=== PATIENT | male | born 1995 | race Asian ===

== ENCOUNTER 2018-07-24 22:43 | Emergency (ER) | payer OTHER ==
[~2018-07-24] VITALS: Ht 182.9 cm; Wt 77.1 kg
[2018-07-24 23:29] VITALS: BP_SYST 114
--- NOTE | 2018-07-24 23:29 | NUR ---
Patient to ER bed 5 to gown for evaluation. Side rails up.
--- NOTE | 2018-07-24 23:30 | NUR ---
Patient AOx4, ambulatory, presents to ER with complaint of body aches, fever, chills, and sore throat x4 days. Patient states fever of 101.2. Patient medicated with Tylenol 1 hour prior to arrival to ED. No other symptoms or complaints. Mother at bedside.
--- NOTE | 2018-07-24 23:45 | NUR ---
ER MD Pratt at bedside for medical evaluation.
[2018-07-25] MEDS ORDERED: ONDANSETRON 4 MG ODT TAB PO ONE
[2018-07-25] MEDS ORDERED: AMOXICILLIN 500 MG CAPSULE PO ONE
[2018-07-25 00:16] VITALS: BP_SYST 118
--- NOTE | 2018-07-25 00:16 | NUR ---
Patient given written and verbal discharge instructions and verbalizes understanding. ER MD discussed with patient the results and treatment provided. Patient in stable condition. ID arm band removed. Rx of Zofran and Amoxicillin given. Patient educated on pain management and to follow up with PMD. Pain Scale 2/10 tolerable to patient. Opportunity for questions provided and answered. Medication side effect fact sheet provided.
== END 2018-07-25 00:16 | disposition home or self-care (01) ==
LOC: SED 22:43
DX: J03.90 Acute tonsillitis, unspecified (principal); R11.10 Vomiting, unspecified
CPT/HCPCS: 36415; 86710; 99284; Q0162